=== PATIENT | female | born 1995 | race Caucasian/White ===

== ENCOUNTER 2021-11-15 12:00 | Outpatient (CLI) | payer BC, MEDICAID, SELFPAY ==
[2021-11-15 14:10] LABS: Absolute Lymphocyte Count 1.76 X10^3/uL (0.83-4.51); Basophil# 0.01 X10^3/uL; Basophil% 0.1 % (0-1); Eosinophil# 0.06 X10^3/uL; Eosinophils% 0.6 % (0-5); Hematocrit 35.9 % (37-47); Hemoglobin 12.4 g/dL (12.0-15.0); Lymphocyte # 1.76 X10^3/ul (0.83-4.51); Lymphocyte % 18.8 % (19-41); Mean Corp Hgb Conc 34.5 g/dL (32-36); Mean Corpuscular Hgb 29.2 pg (27.0-32.0); Mean Corpuscular Volume 84.7 fL (81-99); Monocyte# 0.47 X10^3/uL; NRBC Flagged by Analyzer 0 % (0-5); Neutrophil % 75.1 % (47-70); Platelet Count 184 K/mm3 (150-450); RBC Distribution Width CV 12.7 % (11.6-14.6); RBC Distribution Width SD 38.7 fl (35.1-43.9); Red Blood Count 4.24 M/mm3 (4.2-5.4); White Blood Count 9.3 K/mm3 (4.4-11.0)
[2021-11-15 14:59] LABS: HIV - WCH Non-Reactive (Nonreactive); Hepatitis B Surface Antigen Non-Reactive (Nonreactive); Hepatitis C Antibody Non-Reactive (Nonreactive); Rubella IgG Reactive (Nonreactive); Syphilis Antibodies Non-reactive
[2021-11-18 00:06] LABS: Chlamydia By Nucleic Acid AMP Positive (Negative)
[2021-11-18 14:33] LABS: Gonococcus By Nucleic Acid AMP Negative (Negative)
[2021-11-21 08:12] LABS: HPV Reflexed? NOT INDICATED
== END 2021-11-15 23:59 | disposition home or self-care (01) ==
LOC: WOBLAB 12:03
PROVIDERS: Visit Provider Obstetrics & Gynecology
DX: Z34.81 Encounter for supervision of other normal pregnancy, first trimester (principal)
CPT/HCPCS: 36415; 85025; 86703; 86762; 86780; 86803; 87086; 87340; 87491; 87591; 88175; G0145

== ENCOUNTER 2021-12-13 11:56 | Outpatient (CLI) | payer BC, MEDICAID, SELFPAY ==
[2021-12-15 22:07] LABS: Chlamydia By Nucleic Acid AMP Negative (Negative)
[2021-12-16 13:45] LABS: Gonococcus By Nucleic Acid AMP Negative (Negative)
== END 2021-12-13 23:59 | disposition home or self-care (01) ==
LOC: LABSPEC 12:00
PROVIDERS: Visit Provider Obstetrics & Gynecology
DX: A56.2 Chlamydial infection of genitourinary tract, unspecified (principal)
CPT/HCPCS: 87491; 87591

== ENCOUNTER 2022-01-17 09:39 | Outpatient (CLI) | payer BC, MEDICAID, SELFPAY ==
[2022-01-17 10:17] LABS: Hematocrit 33.4 % (37-47); Hemoglobin 11.4 g/dL (12.0-15.0); Mean Corp Hgb Conc 34.1 g/dL (32-36); Mean Corpuscular Hgb 29.4 pg (27.0-32.0); Mean Corpuscular Volume 86.1 fL (81-99); Mean Platelet Vol. 10.9 fl (6.2-12.0); Platelet Count 153 K/mm3 (150-450); RBC Distribution Width CV 12.6 % (11.6-14.6); RBC Distribution Width SD 39.4 fl (35.1-43.9); Red Blood Count 3.88 M/mm3 (4.2-5.4); White Blood Count 10.9 K/mm3 (4.4-11.0)
[2022-01-17 10:56] LABS: Glucose Challenge Gest 1H 50g 86 mg/dL (70-140)
== END 2022-01-17 23:59 | disposition home or self-care (01) ==
LOC: WOBLAB 09:41
PROVIDERS: Visit Provider Obstetrics & Gynecology
DX: Z34.82 Encounter for supervision of other normal pregnancy, second trimester (principal)
CPT/HCPCS: 36415; 82950; 85027

== ENCOUNTER → 2022-03-27 | Outpatient (CLI) | payer BC, MEDICAID, SELFPAY | END | disposition home or self-care (01) | LOC: LABSPEC 16:55 | PROVIDERS: Visit Provider Obstetrics & Gynecology | DX: Z36.85 Encounter for antenatal screening for Streptococcus B (principal) | CPT/HCPCS: 87081 ==

== ENCOUNTER 2022-04-25 23:45 | Inpatient (IN) | payer BC, MEDICAID, SELFPAY ==
[2022-04-25 23:17] VITALS: BP 125/61; PULSE 69
[2022-04-25 23:24] VITALS: BMI 34.0
[2022-04-25] MEDS: Lactated Ringers 1,000 ML 50 ML IV (23:50)
[2022-04-26] VITALS (69 sets, daily range): BP systolic 96–147; BP diastolic 50–80; PULSE 28–221; RESP 18; TEMP 36–37.6; O2SAT 82–100
--- NOTE | 2022-04-26 | PLAC_PTH ---
PATIENT: RAQUEL REAVES LOC: [facility] U#:[id number] AGE/SX: 27/F ROOM: [facility] RE04/25/[address]: Dr. Javad Johnson MD : 1995 BED: 1 DIS: 04/28/2022 SPEC #: [id number] RECD: 04/26/22 20:33 STATUS: JOSE REBrad #: [id number] CARMELA: 04/26/22 00:[address]: Javad Johnson DEPT: SURGICAL PATHOLOGY RECD BY: Adam Zhang ENTERED: 04/27/22 09:37 SP TYPE: PLACENTA OTHR DR: No Primary Care Phys Tissues: Placenta, NOS Procedures: Surgery Specimen Level V HEADER OPERATION: Vaginal delivery PRE-OP DIAGNOSIS: Moderate meconium stained fluid TISSUE SUBMITTED: Placenta MICROSCOPIC DIAGNOSIS Placenta: Placental disc - third trimester placenta (458 gm). - Focal acute vasculitis of subamniotic blood vessels. - Villous congestion. Membranes ? moderate to marked acute chorioamnionitis. Umbilical cord - three blood vessels and moderate acute funisitis. SJ:javier 05/01/2022 MICROSCOPIC DESCRIPTION Slides are reviewed. GROSS DESCRIPTION SPECIMEN: PLACENTA / CLINICAL INFORMATION: A. Weight: 3.095 kg B. Gestational Age: 40 weeks C. Sex: Female PLACENTAL WEIGHT (POST FIXATION): 458 gm PLACENTAL DIMENSIONS: 15.5 x 15 x 3 cm PLACENTAL SHAPE: Usual ovoid PLACENTAL WEIGHT FOR GESTATIONAL AGE: Within 10-99th percentile MEMBRANES - Present A. Insertion: Marginal B. Site of rupture from edge: 9 cm from edge of placental disc C. Color of membrane: Lemus-church D. Abnormalities: None UMBILICAL CORD - Present A. Color: Lemus-church B. Insertion: Eccentric C. Length: 50 cm D. Diameter: 1.5 cm E. Number of vessels: Three F. Abnormalities: None PLACENTAL DISC - Present A. Color of surface: Lemus-church B. surface abnormalities: None C. Maternal cotyledons: Intact with minimal tears D. Attached retro placental clot: No clot E. Cut surface: Dark red and spongy F. Lesions: None G. Separate clot: Absent SECTIONS SUBMITTED: 1. Umbilical cord ( end notched) 2. Umbilical cord, placental end 3. Membrane roll 4. Placental disc, and maternal surfaces 5. Placental disc, and maternal surfaces 6. Placental disc, and maternal surfaces AM:javier 04/28/2022 TC:2 CPT: 91022
[2022-04-26 00:07] LABS: Absolute Lymphocyte Count 2.07 X10^3/uL (0.83-4.51); Absolute Neutrophil Count 11.1 X10^3/uL (2.0-7.7); Basophil# 0.02 X10^3/uL; Basophil% 0.1 % (0-1); Eosinophil# 0.21 X10^3/uL; Eosinophils% 1.5 % (0-5); Hematocrit 31.6 % (37-47); Hemoglobin 10.2 g/dL (12.0-15.0); Lymphocyte # 2.07 X10^3/ul (0.83-4.51); Lymphocyte % 14.5 % (19-41); Mean Corp Hgb Conc 32.3 g/dL (32-36); Mean Corpuscular Hgb 25.8 pg (27.0-32.0); Mean Platelet Vol. 12.4 fl (6.2-12.0); Monocyte% 5.6 % (0-10); NRBC Flagged by Analyzer 0 % (0-5); Neutrophil # 11.07 X10^3/uL (2.7-7.7); Neutrophil % 77.5 % (47-70); Platelet Count 158 K/mm3 (150-450); RBC Distribution Width SD 40.5 fl (35.1-43.9); Red Blood Count 3.95 M/mm3 (4.2-5.4); White Blood Count 14.3 K/mm3 (4.4-11.0)
[2022-04-26] MEDS: LACTATED RINGERS 500 ML 999 ML IV ×2 (00:27→04:38)
[2022-04-26] MEDS: fentaNYL-bupivacaine (epidural) 100 ML BAG EPIDURAL ×3 (02:38→13:00)
--- NOTE | 2022-04-26 05:43 | PCM.HP.OB ---
HPI - General General Date of Admission: 04/25/22 Date of Service: 04/26/22 Chief Complaint: contractions HPI Narrative RAQUEL REAVES, is a 27 F who presents at 40 4/7 weeks gestation with c/o painful contractions. [facility] Medical History Autoimmune disease Chlamydia infection affecting Allergy/AdvReac Type Severity Reaction Status Date / Time latex Allergy Unknown UNKNOWN Verified 04/25/22 23:26 Family History (Updated 04/26/22 @ 05:[address] Raina Barrios MD) Mother Breast cancer Surgical History History of tonsillectomy and adenoidectomy Social History Smoking Status: Former smoker alcohol intake: never History 2 Elective abortions Hx Para 0 Spontaneous abortions 1 Hx # Term Pregnancies 0 Ectopic pregnancies Hx # Pregnancies 0 Multiple births # of living children 0 NST FHR Rate Baby A Baseline: 140 Variability:: Moderate Accelerations:: 15 x 15 Decelerations:: None NST Reactive:: Yes FHR Category:: Category I Uterine Activity:: 2/10 Vital Signs Vital Signs Vital Signs: 04/25/22 23:17 04/25/22 23:17 04/26/22 01:59 Temperature Temperature Source Pulse Rate 69 83 Blood Pressure 125/61 H BP Systolic 125 BP Diastolic 61 Pulse Ox 04/26/22 01:59 04/26/22 02:09 04/26/22 02:09 Temperature Temperature Source Pulse Rate 82 Blood Pressure BP Systolic BP Diastolic Pulse Ox 100 98 04/26/22 02:10 04/26/22 02:10 04/26/22 02:14 Temperature Temperature Source Pulse Rate 83 75 Blood Pressure 124/59 H BP Systolic 124 BP Diastolic 59 Pulse Ox 04/26/22 02:14 04/26/22 02:15 04/26/22 02:15 Temperature Temperature Source Pulse Rate 94 Blood Pressure 125/72 H BP Systolic 125 BP Diastolic 72 Pulse Ox 98 04/26/22 02:19 04/26/22 02:19 04/26/22 02:20 Temperature Temperature Source Pulse Rate 83 Blood Pressure 121/68 H BP Systolic 121 BP Diastolic 68 Pulse Ox 99 04/26/22 02:20 04/26/22 02:24 04/26/22 02:24 Temperature Temperature Source Pulse Rate 80 85 Blood Pressure 129/71 H BP Systolic 129 BP Diastolic 71 Pulse Ox 04/26/22 02:24 04/26/22 02:24 04/26/22 02:29 Temperature Temperature Source Pulse Rate 79 Blood Pressure 115/57 L BP Systolic 115 BP Diastolic 57 Pulse Ox 98 04/26/22 02:29 04/26/22 02:29 04/26/22 02:31 Temperature Temperature Source Pulse Rate 90 Blood Pressure 126/59 H BP Systolic 126 BP Diastolic 59 Pulse Ox 98 04/26/22 02:31 04/26/22 02:34 04/26/22 02:34 Temperature Temperature Source Pulse Rate 73 77 Blood Pressure 127/60 H BP Systolic 127 BP Diastolic 60 Pulse Ox 04/26/22 02:35 04/26/22 02:35 04/26/22 02:44 Temperature Temperature Source Pulse Rate 83 Blood Pressure 98/54 L BP Systolic 98 BP Diastolic 54 Pulse Ox 97 04/26/22 02:44 04/26/22 02:46 04/26/22 02:46 Temperature Temperature Source Pulse Rate 78 76 Blood Pressure 102/54 L BP Systolic 102 BP Diastolic 54 Pulse Ox 04/26/22 02:45 04/26/22 02:50 04/26/22 02:50 Temperature Temperature Source Pulse Rate 77 Blood Pressure BP Systolic BP Diastolic Pulse Ox 98 98 04/26/22 02:56 04/26/22 02:56 04/26/22 02:55 Temperature Temperature Source Pulse Rate 73 Blood Pressure 97/53 L BP Systolic 97 BP Diastolic 53 Pulse Ox 98 04/26/22 03:00 04/26/22 03:00 04/26/22 03:02 Temperature Temperature Source Pulse Rate 100 Blood Pressure 144/80 H BP Systolic 144 BP Diastolic 80 Pulse Ox 98 04/26/22 03:02 04/26/22 03:05 04/26/22 03:05 Temperature Temperature Source Pulse Rate 144 H 101 H Blood Pressure BP Systolic BP Diastolic Pulse Ox 98 04/26/22 03:06 04/26/22 03:06 04/26/22 03:10 Temperature Temperature Source Pulse Rate 96 85 Blood Pressure 117/63 BP Systolic 117 BP Diastolic 63 Pulse Ox 04/26/22 03:10 04/26/22 03:12 04/26/22 03:12 Temperature Temperature Source Pulse Rate 86 Blood Pressure 101/50 L BP Systolic 101 BP Diastolic 50 Pulse Ox 97 04/26/22 03:16 04/26/22 03:16 04/26/22 03:15 Temperature Temperature Source Pulse Rate 81 Blood Pressure 96/50 L BP Systolic 96 BP Diastolic 50 Pulse Ox 97 04/26/22 03:19 04/26/22 03:19 04/26/22 03:20 Temperature Temperature Source Pulse Rate 80 83 Blood Pressure 96/52 L BP Systolic 96 BP Diastolic 52 Pulse Ox 04/26/22 03:20 04/26/22 03:19 04/26/22 03:19 Temperature 98.3 F Temperature Source Temporal Pulse Rate Blood Pressure BP Systolic BP Diastolic Pulse Ox 97 04/26/22 02:41 04/26/22 02:41 04/26/22 03:26 Temperature 96.8 F L Temperature Source Temporal Pulse Rate 85 Blood Pressure BP Systolic BP Diastolic Pulse Ox 04/26/22 03:26 04/26/22 03:31 04/26/22 03:31 Temperature Temperature Source Pulse Rate 83 Blood Pressure BP Systolic BP Diastolic Pulse Ox 97 98 04/26/22 03:36 04/26/22 03:36 04/26/22 03:41 Temperature Temperature Source Pulse Rate 77 78 Blood Pressure BP Systolic BP Diastolic Pulse Ox 99 04/26/22 03:41 04/26/22 03:46 04/26/22 03:46 Temperature Temperature Source Pulse Rate 78 Blood Pressure BP Systolic BP Diastolic Pulse Ox 98 99 04/26/22 03:50 04/26/22 03:50 04/26/22 03:51 Temperature Temperature Source Pulse Rate 73 70 Blood Pressure 116/56 L BP Systolic 116 BP Diastolic 56 Pulse Ox 04/26/22 03:51 04/26/22 03:56 04/26/22 03:56 Temperature Temperature Source Pulse Rate 77 Blood Pressure BP Systolic BP Diastolic Pulse Ox 99 97 04/26/22 04:01 04/26/22 04:01 04/26/22 04:06 Temperature Temperature Source Pulse Rate 73 89 Blood Pressure BP Systolic BP Diastolic Pulse Ox 98 04/26/22 04:06 04/26/22 04:11 04/26/22 04:11 Temperature Temperature Source Pulse Rate 77 Blood Pressure BP Systolic BP Diastolic Pulse Ox 99 98 04/26/22 04:16 04/26/22 04:16 04/26/22 04:19 Temperature Temperature Source Pulse Rate 76 Blood Pressure 105/56 L BP Systolic 105 BP Diastolic 56 Pulse Ox 98 04/26/22 04:19 04/26/22 04:43 04/26/22 04:43 Temperature 97.8 F Temperature Source Temporal Pulse Rate 81 Blood Pressure BP Systolic BP Diastolic Pulse Ox 04/26/22 05:25 04/26/22 05:25 04/26/22 05:25 Temperature Temperature Source Pulse Rate 68 Blood Pressure 111/56 L BP Systolic 111 BP Diastolic 56 Pulse Ox 99 04/26/22 05:25 Temperature 98.0 F Temperature Source Pulse Rate Blood Pressure BP Systolic BP Diastolic Pulse Ox Weight Weight: 89.925 kg Body Mass Index (BMI) 34.0 Physical Exam Const alert, oriented x3 and no apparent distress HEENT normocephalic Resp normal respiratory effort, normal air movement and clear to auscultation bilaterally Cardio regular rate and regular rhythm GI normal to inspection, nondistended, normoactive bowel sounds, soft to palpation, non-tender and non-distended Inspection: gravid Labs Labs Labs: Blood Type O POSITIVE Antibody Screen NEGATIVE Hct 31.6 % (37-47) L Hgb 10.2 g/dL (12.0-15.0) L Syphilis Total Ab Non-reactive Rubella IgG Antibody Reactive (Nonreactive) Hep Bs Antigen Non-Reactive (Nonreactive) Chlamydia DNA (JYOTI) Negative (Negative) Neisseria gonorrhoeae DNA (JYOTI) Negative (Negative) HIV 1&2 Antibody Non-Reactive (Nonreactive) Glucose 1 Hr 50 gm 86 mg/dL (70-140) Assessment & Plan (1) 40 weeks gestation of : PLAN: Proceed in labor Amniotomy with clear fluid GBS neg
[2022-04-26] MEDS: Lactated Ringers 1,000 ML 200 ML IV ×2 (06:42→12:03)
[2022-04-26] MEDS: 0.9% Normal Saline 1,000 ML IV.SOLN. 300 ML INTRA-UTER (10:30)
[2022-04-26] MEDS: Amnioinfusion- 0.9% NS 1,000 ML IV.SOLN. 60 ML INTRA-UTER (11:33)
[2022-04-26] MEDS: Oxytocin 30 units/NS 500 ml 30 UNITS/500 ML IV.SOLN 334 UNITS IV (14:37)
--- NOTE | 2022-04-26 14:45 | EX.PCM.OBRPT ---
Maternal Data Information Gestational age: 40 weeks 4 days gestation Doctor Who Attended Delivery: Dixie White Vaginal Delivery Maternal Presentation Maternal Presentation: Active Labor Operative Information Date of Procedure: 04/26/22 Pre-Operative Diagnosis: IUP Post-Operative Diagnosis: IUP Surgery / Procedure Performed: Vacuum Assisted Vaginal Delivery Type of Anesthesia: Epidural Estimated Blood Loss: 250 cc Fluids Replaced: Crystalloid Time of Delivery: 14:30 Findings Description of Procedure: Spontaneous vaginal delivery of a viable female with Apgars of 8/9 from an occiput anterior presentation with moderately thick amniotic fluid and normal meconium stained three-vessel placenta. Cord around left leg tight. No episiotomy or lacerations. Kiwi vacuum suction used x6 gentle pulls from low outlet with 2 pops to expedite delivery of the head due to variable and late decelerations after pushing for approximately 3-1/2 hours. Sponges okay. Delivery physician: Javad Johnson MD. Presentation: Vertex Amniotic Membrane Rupture Type: Artificial Amniotic Fluid Description: Moderate meconium Placental Delivery Description: Spontaneous Placenta Disposition: Sent to Pathology Cord Vessel Description: 3 Vessels Cord Entanglement: - (Around left foot tight) Cord Gases: ABG and VBG A Gender: Female (1 minute): 8 (5 minute): 9 Post Vaginal Delivery Medications Given After Delivery: IV Pitocin Episiotomy Description: None Laceration: None Complication Complications: None
[2022-04-26] MEDS: 0.9% Saline Lock 10 ML Syringe IV (17:06)
[2022-04-26] MEDS: Hydrocortisone 2.5% Crm 1 APPLIC TOPICAL (21:49)
[2022-04-26] MEDS: Ibuprofen 600 MG Tablet PO (21:50)
[2022-04-27 01:15] VITALS: BP 95/40; PULSE 73; RESP 18; TEMP 36.2; O2SAT 96
[2022-04-27 04:40] VITALS: BP 100/58; PULSE 65; RESP 16; TEMP 36.1; O2SAT 99
[2022-04-27 08:12] VITALS: BP 102/58; PULSE 73; RESP 16; TEMP 36.4; O2SAT 98
--- NOTE | 2022-04-27 09:02 | PCM.PN.OB ---
Subjective Subjective day 1. Working on breast-feeding. Abdomen lochia minimal. Pain controlled. Objective Data Objective Data Vital Signs: Vital Signs Temp Pulse Resp BP Pulse Ox O2 Del Method 97.5 F L 73 16 102/58 L 98 Room Air 04/27/22 08:12 04/27/22 08:12 04/27/22 08:12 04/27/22 08:12 04/27/22 08:12 04/27/22 08:12 Oxygen Delivery Method Room Air Weight: 89.925 kg Body Mass Index (BMI) 34.0 Intake & Output: Intake and Output for Last 24 Hours 04/25/22 04/26/22 04/27/22 23:59 23:59 23:59 Intake Total 5513.33 / 5513.33 Output Total 2875 / 2875 Balance 2638.33 / 2638.33 Lab / Micro Data Attestation: I reviewed the patient's lab results. Result Diagrams: 04/25/22 23:50 Labs: Laboratory Results - last 24 hr 04/26/22 14:30: Direct Antiglob Test NEG w/POLYSPECIFIC, Baby's Blood Type O POSITIVE Micro: Microbiology 04/25/22 23:59 Nasal Secretion SARS-CoV-2 Antigen (Rapid) - Final Physical Exam Const alert, oriented x3 and no apparent distress HEENT normocephalic Head and Scalp: atraumatic Neck full ROM Resp normal respiratory effort Cardio regular rate GI normal to inspection, nondistended, normoactive bowel sounds GI Narrative: Uterus 2 cm below umbilicus Back/Spine normal ROM Extremity normal to inspection Extremity Narrative: Minimal pedal edema Neuro no focal motor deficits and no sensory deficits noted Psych mental status grossly normal and affect normal Assessment & Plan (1) Vaginal delivery: PLAN: day 1 status post . Patient stable. Desires home-going. Discharge home with follow-up. Follow-up 1 week telehealth and 6-week visit.
--- NOTE | 2022-04-27 09:03 | DCINST_ITS ---
Discharge Instructions Diet Discharge Diet: No restrictions Activity Discharge Activity: Return to Normal Activity and May Shower May resume sexual activity in: 4-6 weeks Weight Bearing Status: Weight bearing as tolerated Lifting Restrictions: No greater than 25 pounds Dressing / Incision Call your doctor if you observe: Fever of 101 or Higher, Change in Color, Inability to urinate, Using more than 1 pad per hour, Shortness of breath, Dizziness, Swelling in the ankles, Chest pain and Calf discomfort Follow Up Care Please Follow Up With: Nikolay Tam MD When: 1 week telehealth appointment and 6-week visit Test Results: Test results from this visit will be discussed in further detail at your follow- up appointment, if applicable. Discharge Plan Admission Admit Date/Time: 04/25/22 23:45 Primary Reason for Your Visit: Vaginal delivery Attending Provider: Javad Johnson Primary Care Provider: Care Physician,Pretty Primary Discharge Orders/Prescriptions Referrals / Follow Up: Care Physician,No Primary [Primary Care Provider] - Disposition Disposition (needs filled in before D/C Order can be placed): Home, Self Care
[2022-04-27 12:05] VITALS: BP 102/61; PULSE 85; RESP 16; TEMP 36.5
[2022-04-27 15:43] VITALS: BP 105/63; PULSE 79; RESP 16; TEMP 36.7
[2022-04-27] MEDS: Ibuprofen 600 MG Tablet PO (16:17)
[2022-04-27 21:35] VITALS: BP 99/65; PULSE 76; RESP 18; TEMP 36.2
[2022-04-28 03:30] VITALS: BP 103/43; PULSE 66; RESP 18; TEMP 36.9
--- NOTE | 2022-04-28 07:37 | PCM.DC.BLA ---
Discharge Summary Date of Admission: 04/26/22 Date of Discharge: 04/28/22 Summary: Patient arrived on 04/26 in labor. Subsequently delivered via vacuum-assisted vaginal delivery for nonreassuring heart tones on 04/26/2022. Routine recovery. Discharge home on 04/28/2022 Meaningful Use Info Meaningful Use Diagnoses (Choose all that apply): None applicable Discharge Plan Admission Admit Date/Time: 04/25/22 23:45 Primary Reason for Your Visit: Vaginal delivery Attending Provider: Javad Johnson Primary Care Provider: Pretty Dumont Primary Instructions Additional Instructions / Restrictions: Okay to drive. Regular diet. Okay to shower. No intercourse for 4 to 6 weeks. Weightbearing as tolerated. Call if chest pain, shortness of breath, increased bleeding or pain. Follow-up 4 to 6 weeks Discharge Orders/Prescriptions Referrals / Follow Up: Care Physician,Pretty Primary [Primary Care Provider] - Disposition Disposition (needs filled in before D/C Order can be placed): Home, Self Care
--- NOTE | 2022-04-28 07:37 | PCM.PN.OB ---
Subjective Subjective No overnight complaints. Pain well controlled. Objective Data Objective Data Vital Signs: Vital Signs Temp Pulse Resp BP Pulse Ox O2 Del Method 98.4 F 66 18 103/43 L 98 Room Air 04/28/22 03:30 04/28/22 03:30 04/28/22 03:30 04/28/22 03:30 04/27/22 08:12 04/28/22 03:30 Oxygen Delivery Method Room Air Weight: 198 lb 4 oz Body Mass Index (BMI) 34.0 Intake & Output: Intake and Output for Last 24 Hours 04/26/22 04/27/22 04/28/22 23:59 23:59 23:59 Intake Total 5513.33 / 5513.33 Output Total 2875 / 2875 Balance 2638.33 / 2638.33 Lab / Micro Data Result Diagrams: 04/25/22 23:50 Micro: Microbiology 04/25/22 23:59 Nasal Secretion SARS-CoV-2 Antigen (Rapid) - Final Physical Exam Const alert, oriented x3, no apparent distress, average body habitus, healthy appearing and well nourished HEENT normocephalic Eyes PERRL Neck full ROM Resp normal respiratory effort, no retractions and no use of accessory muscles GI GI Narrative: Soft, nontender, uterus firm and below umbilicus Extremity normal to inspection, full ROM and no clubbing, cyanosis or edema Neuro moves all extremities and no focal motor deficits Psych mental status grossly normal, affect normal, speech normal and activity/motor behavior normal Assessment & Plan (1) Vaginal delivery: PLAN: day 2. Breast-feeding. Discharge home today
[2022-04-28] MEDS: Ibuprofen 600 MG Tablet PO (10:26)
[2022-04-28 10:27] VITALS: BP 118/60; PULSE 80; RESP 16; TEMP 36.4; O2SAT 99
[2022-05-01 15:06] LABS: Pathology Specimen OB SEE PATHOLOGY REPORT
== END 2022-04-28 10:50 | disposition home or self-care (01) | DRG 807 ==
LOC: WPOUT 23:47 → WP 23:47
PROVIDERS: Obstetrics & Gynecology; Admitting Provider Obstetrics & Gynecology; Visit Provider Obstetrics & Gynecology
DX: O77.0 Labor and delivery complicated by meconium in amniotic fluid (principal); Z37.0 Single live birth; O76 Abnormality in fetal heart rate and rhythm complicating labor and delivery; Z3A.40 40 weeks gestation of pregnancy; Z87.891 Personal history of nicotine dependence
CPT/HCPCS: 59025; 59050; 85025; 86850; 86880; 86900; 86901; 87426; 88307; 99218; J7030; J7120; A4216; G0378